=== PATIENT | male | born 1955 | race Two or more races ===

== ENCOUNTER 2017-11-01 04:43 | Inpatient (IN) | payer OTHER, MEDICAID ==
[~2017-11-01] VITALS: Ht 177.8 cm; Wt 108.9 kg
[2017-11-01] MEDS ORDERED: cloNIDine HCL 0.1 MG TAB PO ONE (05:00)
[2017-11-01] MEDS ORDERED: ACETAMINOPHEN 500 MG TAB PO ONE (05:15)
[2017-11-01 05:33] LABS: Basophils # (auto) 0.1 uL; Basophils % (auto) 0.6 % (0.0-2.0); Eosinophils # (auto) 0.2 uL; Eosinophils % (auto) 1.9 % (0.0-7.0); Hematocrit 38.1 % (41.0-53.0); Hemoglobin 13.1 g/dL (13.5-17.5); Lymphocytes # (auto) 0.7 uL; Lymphocytes % (auto) 8.9 % (10.0-50.0); Mean Corpuscular Hemoglobin 29.7 pg (28.0-32.0); Mean Corpuscular Hgb Conc. 34.2 g/dL (32.0-36.0); Mean Corpuscular Volume 86.6 fL (80.0-100.0); Monocytes # (auto) 0.5 uL; Monocytes % (auto) 5.6 % (0.0-12.0); Neutrophils # (auto) 6.8 uL; Nucleated Red Blood Cells % 0.1 %; Platelet Count (auto) 129 10^3/uL (140-450); Red Cell Distribution Width 14.5 % (11.8-14.3); White Blood Cell 8.2 10^3/uL (4.4-10.8)
[2017-11-01 06:10] LABS: Alanine Aminotransferase 25 U/L (16-61); Albumin 3.8 g/dL (3.4-5.0); Alkaline Phosphatase 60 U/L (45-117); Anion Gap 8 (5-15); Aspartate Aminotransferase 21 U/L (15-37); BUN/Creatinine Ratio 15.5; Bilirubin, Total 0.6 mg/dL (0.2-1.0); Blood Urea Nitrogen 30 mg/dL (7-18); Calcium 8.4 mg/dL (8.5-10.1); Carbon Dioxide 26 mmol/L (21-32); Chloride 106 mmol/L (98-107); GFR African American 45 mL/min; GFR Non-African American 38 mL/min; Glucose 227 mg/dL (74-106); Potassium 3.5 mmol/L (3.5-5.1); Sodium 140 mmol/L (136-145); Total Protein 6.6 g/dL (6.4-8.2)
[2017-11-01] MEDS ORDERED: ASPirin 81 mg TAB PO ONE (07:30)
[2017-11-01] MEDS ORDERED: LORazepam 2MG/ML-1ML VIAL IV ONE (07:30)
[2017-11-01] MEDS ORDERED: FURO40TA4 PO (09:42)
[2017-11-01] MEDS ORDERED: ASPI-231 PO (09:42)
[2017-11-01] MEDS ORDERED: LOSA100T27 PO (09:42)
[2017-11-01] MEDS ORDERED: EZET10TA6 PO (09:42)
[2017-11-01] MEDS ORDERED: CARV25TA55 PO (09:42)
[2017-11-01] MEDS ORDERED: ATOR40TA52 PO (09:42)
[2017-11-01] MEDS ORDERED: HYDR-4683 PO (09:42)
[2017-11-01] MEDS ORDERED: PRAS10TA6 PO (09:42)
[2017-11-01] MEDS ORDERED: RANO500T2 PO (09:42)
[2017-11-01] MEDS ORDERED: FENO160T8 PO (09:42)
[2017-11-01] MEDS ORDERED: NITROGLYCERIN 0.4 MG SL TAB SL PRN (09:45)
[2017-11-01] MEDS ORDERED: HYDROcodone-ACET 5/325MG TAB PO PRN (09:45)
[2017-11-01] MEDS ORDERED: LABETALOL HCL 5 MG/ML ML 20ML VIAL IV PRN (09:45)
[2017-11-01] MEDS ORDERED: MORPHINE SULFATE 4 MG/ML SYR/VIAL IV PRN (09:45)
[2017-11-01] MEDS ORDERED: cefTRIAXone 1GM/10ml IVPUSH 10 ML IV ONE (09:45)
[2017-11-01] MEDS ORDERED: ONDANSETRON HCL 4 MG/2 ML VIAL IV PRN (09:45)
[2017-11-01] MEDS ORDERED: CARVEDILOL 12.5 MG TAB PO ONE (10:15)
[2017-11-01] MEDS: AZITHROMYCIN 500MG/ 250ML 250 ML IV SCH (10:52)
[2017-11-01] MEDS: SODIUM CHLORIDE 0.9% 1,000 ML IV SCH (10:52)
[2017-11-01 11:03] LABS: INR 0.93 (0.9-1.15); Partial Thromboplastin Time 26.2 sec (22.64-33.71); Prothrombin Time 10.1 sec (9.37-12.3)
[2017-11-01] MEDS: Fenofibrate 160MG TABLET PO SCH (11:13)
[2017-11-01] MEDS: PRASUGREL HCL 10 MG TAB PO SCH (11:13)
[2017-11-01] MEDS: PANTOPRAZOLE 40 MG TAB PO SCH (11:13)
[2017-11-01] MEDS: RANOLAZINE ER 500 MG TAB PO SCH ×2 (11:13→21:27)
[2017-11-01] MEDS: IPRATROPIUM BROM 0.5 MG/2.5ML INH SOL NEB SCH ×2 (11:16→19:00)
[2017-11-01] MEDS: ALBUTEROL SULF 2.5 MG/0.5ML(0.5%) NEB SOLN NEB SCH ×2 (11:16→19:01)
[2017-11-01 11:40] LABS: Urine Bacteria FEW /hpf (None Seen); Urine Blood Negative /uL (Negative); Urine Hyaline Cast FEW /lpf (0 - 2); Urine Mucus FEW (None Seen); Urine Specific Gravity 1.024 (1.001-1.035); Urine WBC 1 /hpf (0 - 3)
[2017-11-01 12:37] VITALS: BP 114/73
[2017-11-01] MEDS ORDERED: DEXTROSE (50%) 50ML SYRG IV PRN (13:45)
[2017-11-01] MEDS ORDERED: methylPREDNISolone SOD SUCC 40 MG/ML VL IV ONE (14:45)
[2017-11-01 17:00] VITALS: BP 163/97
[2017-11-01] MEDS: InsuLIN REG 1unit/0.01ml Soln (100units/ml) SC SCH ×2 (17:16→21:26)
[2017-11-01] MEDS: ACCU-CHEK COMFORT CURVE STRIP VI SCH ×2 (17:16→22:00)
[2017-11-01 20:00] VITALS: BP 140/81
[2017-11-01] MEDS: methylPREDNISolone SOD SUCC 40 MG/ML VL IV SCH (21:27)
[2017-11-01] MEDS: CARVEDILOL 12.5 MG TAB PO SCH (21:29)
[2017-11-01] MEDS: ATORVASTATIN 20 MG TAB PO SCH (21:31)
[2017-11-01 22:00] VITALS: BP 140/81
[2017-11-02] VITALS (7 sets, daily range): BP systolic 122–159; BP diastolic 75–89
[2017-11-02] MEDS: IPRATROPIUM BROM 0.5 MG/2.5ML INH SOL NEB SCH ×4 (01:00→20:53)
[2017-11-02] MEDS: ALBUTEROL SULF 2.5 MG/0.5ML(0.5%) NEB SOLN NEB SCH ×4 (01:00→20:53)
[2017-11-02] MEDS: SODIUM CHLORIDE 0.9% 1,000 ML IV SCH (02:25)
[2017-11-02 06:10] LABS: Basophils # (auto) 0 uL; Basophils % (auto) 0.1 % (0.0-2.0); Eosinophils # (auto) 0 uL; Hematocrit 34.8 % (41.0-53.0); Hemoglobin 11.9 g/dL (13.5-17.5); Lymphocytes # (auto) 0.4 uL; Mean Corpuscular Hemoglobin 29.7 pg (28.0-32.0); Mean Corpuscular Hgb Conc. 34.2 g/dL (32.0-36.0); Mean Corpuscular Volume 86.8 fL (80.0-100.0); Monocytes # (auto) 0.2 uL; Monocytes % (auto) 1.9 % (0.0-12.0); Neutrophils # (auto) 8.2 uL; Platelet Count (auto) 136 10^3/uL (140-450); Red Blood Cells 4.01 10^6/uL (4.5-5.90); Red Cell Distribution Width 14.7 % (11.8-14.3); White Blood Cell 8.8 10^3/uL (4.4-10.8)
[2017-11-02 06:17] LABS: BUN/Creatinine Ratio 16.5; Calcium 8.3 mg/dL (8.5-10.1); Potassium 3.8 mmol/L (3.5-5.1)
[2017-11-02 06:38] LABS: Cholesterol 167 mg/dL (< 200); HDL Cholesterol 45 mg/dL (40-59); LDL Cholesterol 107 mg/dL (< 100); Triglycerides 109 mg/dL (< 150)
[2017-11-02] MEDS: InsuLIN REG 1unit/0.01ml Soln (100units/ml) SC SCH ×4 (07:03→21:32)
[2017-11-02] MEDS: ACCU-CHEK COMFORT CURVE STRIP VI SCH ×4 (07:04→21:26)
[2017-11-02] MEDS: cefTRIAXone 1GM/10ml IVPUSH 10 ML IV SCH (09:29)
[2017-11-02] MEDS: PRASUGREL HCL 10 MG TAB PO SCH (09:30)
[2017-11-02] MEDS: LOSARTAN POTASSIUM 50 MG TAB PO SCH (09:30)
[2017-11-02] MEDS: methylPREDNISolone SOD SUCC 40 MG/ML VL IV SCH (09:30)
[2017-11-02] MEDS: ASPirin-EC 81 mg tab PO SCH (09:30)
[2017-11-02] MEDS: PANTOPRAZOLE 40 MG TAB PO SCH (09:31)
[2017-11-02] MEDS: CARVEDILOL 12.5 MG TAB PO SCH ×2 (09:31→21:34)
[2017-11-02] MEDS: RANOLAZINE ER 500 MG TAB PO SCH ×2 (09:31→21:33)
[2017-11-02] MEDS: Fenofibrate 160MG TABLET PO SCH (09:33)
[2017-11-02] MEDS: AZITHROMYCIN 500MG/ 250ML 250 ML IV SCH (09:33)
[2017-11-02] MEDS: ATORVASTATIN 20 MG TAB PO SCH (21:33)
[2017-11-03] MEDS: IPRATROPIUM BROM 0.5 MG/2.5ML INH SOL NEB SCH ×5 (00:29→20:11)
[2017-11-03] MEDS: ALBUTEROL SULF 2.5 MG/0.5ML(0.5%) NEB SOLN NEB SCH ×5 (00:29→20:11)
[2017-11-03 06:17] VITALS: BP 134/75
[2017-11-03] MEDS: ACCU-CHEK COMFORT CURVE STRIP VI SCH ×4 (06:45→22:21)
[2017-11-03] MEDS: InsuLIN REG 1unit/0.01ml Soln (100units/ml) SC SCH ×4 (06:46→22:14)
[2017-11-03 08:00] VITALS: BP 138/83
[2017-11-03] MEDS: cefTRIAXone 1GM/10ml IVPUSH 10 ML IV SCH (08:59)
[2017-11-03] MEDS ORDERED: predniSONE 20 MG TAB PO SCH (10:00)
[2017-11-03] MEDS: AZITHROMYCIN 500MG/ 250ML 250 ML IV SCH (10:30)
[2017-11-03] MEDS: LOSARTAN POTASSIUM 50 MG TAB PO SCH (10:31)
[2017-11-03] MEDS: CARVEDILOL 12.5 MG TAB PO SCH ×2 (10:32→22:14)
[2017-11-03] MEDS: PANTOPRAZOLE 40 MG TAB PO SCH (10:33)
[2017-11-03] MEDS: Fenofibrate 160MG TABLET PO SCH (10:35)
[2017-11-03] MEDS: ASPirin-EC 81 mg tab PO SCH (10:36)
[2017-11-03] MEDS: RANOLAZINE ER 500 MG TAB PO SCH ×2 (11:07→22:14)
[2017-11-03] MEDS ORDERED: FUROSEMIDE 40 MG TAB PO ONE (11:45)
[2017-11-03] MEDS ORDERED: GLIMEPIRIDE 2 MG TAB PO ONE (11:45)
[2017-11-03 12:49] VITALS: BP 146/89
[2017-11-03] MEDS: PRASUGREL HCL 10 MG TAB PO SCH (14:55)
[2017-11-03 16:44] VITALS: BP 147/88
[2017-11-03 20:00] VITALS: BP 148/95
[2017-11-03 21:30] VITALS: BP 151/92
[2017-11-03] MEDS: ATORVASTATIN 20 MG TAB PO SCH (22:14)
[2017-11-04 05:00] VITALS: BP 149/82
[2017-11-04 05:34] LABS: Basophils # (auto) 0 uL; Eosinophils # (auto) 0 uL; Eosinophils % (auto) 0.2 % (0.0-7.0); Hematocrit 34.3 % (41.0-53.0); Hemoglobin 11.5 g/dL (13.5-17.5); Lymphocytes % (auto) 12.4 % (10.0-50.0); Mean Corpuscular Hemoglobin 29.4 pg (28.0-32.0); Mean Corpuscular Hgb Conc. 33.5 g/dL (32.0-36.0); Mean Corpuscular Volume 87.6 fL (80.0-100.0); Monocytes # (auto) 0.5 uL; Monocytes % (auto) 6.3 % (0.0-12.0); Neutrophils # (auto) 6.4 uL; Neutrophils % (auto) 81.1 % (37.0-80.0); Nucleated Red Blood Cells % 0.1 %; Platelet Count (auto) 155 10^3/uL (140-450); Red Blood Cells 3.92 10^6/uL (4.5-5.90); Red Cell Distribution Width 14.7 % (11.8-14.3); White Blood Cell 7.8 10^3/uL (4.4-10.8)
[2017-11-04] MEDS: InsuLIN REG 1unit/0.01ml Soln (100units/ml) SC SCH ×2 (05:50→11:50)
[2017-11-04 05:53] LABS: Potassium 4.1 mmol/L (3.5-5.1)
[2017-11-04 06:04] LABS: BUN/Creatinine Ratio 24.9; Calcium 8.3 mg/dL (8.5-10.1)
[2017-11-04] MEDS: ACCU-CHEK COMFORT CURVE STRIP VI SCH ×2 (06:16→11:15)
[2017-11-04] MEDS: ALBUTEROL SULF 2.5 MG/0.5ML(0.5%) NEB SOLN NEB SCH ×2 (06:55→13:07)
[2017-11-04] MEDS: IPRATROPIUM BROM 0.5 MG/2.5ML INH SOL NEB SCH ×2 (06:56→13:07)
[2017-11-04] MEDS ORDERED: GLIMEPIRIDE 2 MG TAB PO SCH (07:00)
[2017-11-04] MEDS: cefTRIAXone 1GM/10ml IVPUSH 10 ML IV SCH (08:48)
[2017-11-04 09:00] VITALS: BP 140/88
[2017-11-04] MEDS: PANTOPRAZOLE 40 MG TAB PO SCH (09:54)
[2017-11-04] MEDS: ASPirin-EC 81 mg tab PO SCH (09:56)
[2017-11-04] MEDS: PRASUGREL HCL 10 MG TAB PO SCH (09:56)
[2017-11-04] MEDS: RANOLAZINE ER 500 MG TAB PO SCH (09:56)
[2017-11-04] MEDS: CARVEDILOL 12.5 MG TAB PO SCH (09:57)
[2017-11-04] MEDS: Fenofibrate 160MG TABLET PO SCH (09:58)
[2017-11-04] MEDS: AZITHROMYCIN 500MG/ 250ML 250 ML IV SCH (09:59)
[2017-11-04] MEDS ORDERED: LOSARTAN POTASSIUM 50 MG TAB PO SCH (10:00)
[2017-11-04] MEDS ORDERED: predniSONE 20 MG TAB PO SCH (10:00)
[2017-11-04] MEDS ORDERED: FUROSEMIDE 40 MG TAB PO SCH (10:00)
[2017-11-04 13:00] VITALS: BP 134/98
[2017-11-04 16:09] VITALS: BP 134/98
[2017-11-04 16:48] VITALS: BP 143/95
== END 2017-11-04 17:39 | disposition home or self-care (01) | DRG 871 ==
LOC: ER 04:46 → TELE 04:47 → TELE-WESTW 17:46 → WEST WING 11-04 00:25
PROVIDERS: ADMIT Internal Medicine; ATTEND Internal Medicine
DX: A41.9 Sepsis, unspecified organism (principal); J18.9 Pneumonia, unspecified organism; N17.0 Acute kidney failure with tubular necrosis; I13.0 Hypertensive heart and chronic kidney disease with heart failure and stage 1 through stage 4 chronic kidney disease, or unspecified chronic kidney disease; I50.9 Heart failure, unspecified; E11.22 Type 2 diabetes mellitus with diabetic chronic kidney disease; J44.0 Chronic obstructive pulmonary disease with (acute) lower respiratory infection; J44.1 Chronic obstructive pulmonary disease with (acute) exacerbation; E11.65 Type 2 diabetes mellitus with hyperglycemia; N18.3 Chronic kidney disease, stage 3 (moderate); E66.9 Obesity, unspecified; E78.5 Hyperlipidemia, unspecified; I25.10 Atherosclerotic heart disease of native coronary artery without angina pectoris; Z79.82 Long term (current) use of aspirin; Z79.84 Long term (current) use of oral hypoglycemic drugs; Z85.72 Personal history of non-Hodgkin lymphomas; Z95.5 Presence of coronary angioplasty implant and graft; Z79.899 Other long term (current) drug therapy
CPT/HCPCS: 36415; 71045; 71046; 80048; 80053; 80061; 81001; 82962; 83036; 83605; 83735; 83880; 84443; 84484; 85025; 85610; 85730; 87040; 87804; 93005; 93306; 94640; 96365; 96375; J1815